=== PATIENT | female | born 1985 | race Caucasian/White ===

== ENCOUNTER 2021-08-22 18:20 | Emergency (ER) | payer OTHER ==
[~2021-08-22] VITALS: Ht 160 cm; Wt 99.3 kg
[~2021-08-22 18:20] MED LIST: BUPROPION HCL100 MG PO; DEPO-PROVER150 MG/ML IM; DILAUDID2 MG PO; LOSARTAN POTASS25 MG PO; PERCOCET 5-3251 EACH PO; PRILOSEC40 MG PO; WELLBUTRIN XL300 MG PO
--- OUTSIDE RECORDS SUMMARY | 2021-08-22 18:24 | XMS ---
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 EKika VISIT COUNT (12 MO.) 1 JAVIER Nicholson TOTAL 1 NOTE: Visits indicate total known visits. ED/UCC VISIT TRACKING (12 MO.) 08/22/2021 18:21 JAVIER [facility] OR TYPE: Emergency COMPLAINT: - RT HAND NUMBESS INPATIENT VISIT TRACKING (12 MO.) No inpatient visits to display in this time frame [id number]
== END 2021-08-22 21:38 | disposition home or self-care (01) ==
LOC: ED 18:20
DX: R20.2 Paresthesia of skin (principal); I10 Essential (primary) hypertension; Z88.1 Allergy status to other antibiotic agents; Z88.0 Allergy status to penicillin; Z79.899 Other long term (current) drug therapy
CPT/HCPCS: 36415; 70450; 80053; 85025; 99284-25

== ENCOUNTER 2021-08-24 23:21 | Emergency (ER) | payer OTHER ==
[~2021-08-24] VITALS: Ht 160 cm; Wt 99.3 kg
--- OUTSIDE RECORDS SUMMARY | 2021-08-24 23:24 | XMS ---
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 CARE PROVIDERS JENNIFER ZARCO Physician Geoduck Diver Current PHONE: [phone] Wei has no Care Guidelines for this patient. EKika VISIT COUNT (12 MO.) 2 [facility] TOTAL 2 NOTE: Visits indicate total known visits. ED/UCC VISIT TRACKING (12 MO.) 08/24/2021 23:21 JAVIER [facility] OR TYPE: Emergency COMPLAINT: - HIGH BLOOD PRESSURE 08/22/2021 18:21 JAVIER [facility] OR TYPE: Emergency COMPLAINT: - RT HAND NUMBESS INPATIENT VISIT TRACKING (12 MO.) No inpatient visits to display in this time frame [id number]
[2021-08-24] MEDS ORDERED: PANTOPRAZOLE SO20 MG PO (23:36)
[2021-08-24] MEDS ORDERED: ALPRAZOLAM0.5 MG PO (23:36)
[2021-08-25] MEDS ORDERED: ZESTRIL10 MG PO (00:50)
== END 2021-08-25 01:14 | disposition home or self-care (01) ==
LOC: ED 23:21
DX: I10 Essential (primary) hypertension (principal); Z88.0 Allergy status to penicillin; Z88.1 Allergy status to other antibiotic agents; Z79.899 Other long term (current) drug therapy
CPT/HCPCS: 36415; 80048; 81001; 84703; 85025; 96374; 99283-25

== ENCOUNTER 2025-03-22 07:02 | Day surgery (SDC) | payer OTHER ==
[~2025-03-22] VITALS: Ht 160 cm; Wt 97.0 kg
[~2025-03-22 07:02] MED LIST changes: +ALPRAZOLAM0.5 MG PO; +DEXTROAMP-AMPHE30 MG PO; +IBLOOD GLUCOSE TEST STRIP 1 EA TEST VI PRN; +LACTATED RINGER'S 1,000 ML IV SCH; +LIDOCAINE HCL 1% 5 ML SDV INJ ONE; +NIFEDIPINE ER30 M1 PO; +PANTOPRAZOLE SO20 MG PO; +VITAMIN D3125 MC1 PO; +ZESTRIL10 MG PO
[2025-03-22 07:11] VITALS: BP 157/96
[2025-03-22 07:39] LABS: BASOPHILS 0.4 % (0.1-1.2); EOSINOPHILS 3.9 % (0.7-5.8); LYMPHOCYTES 33.1 % (19.3-51.7); MCH 29.7 PG (25.6-32.2); MCHC 32.6 g/dL (32.2-35.5); MCV 91.2 fL (79.4-94.8); MONOCYTES 6.0 % (4.7-12.5); NEUTROPHILS 56.4 % (34.0-71.1); RBC 4.78 M/uL (3.93-5.22)
[2025-03-22] MEDS ORDERED: LIDOCAINE HCL 2% 5 ML SDV ONE (07:44)
[2025-03-22] MEDS ORDERED: fentaNYL citrate 100 MCG/2 ML VIAL ONE (07:56)
--- NOTE | 2025-03-22 08:41 | NUR ---
03/22/25 0841 Mayra Etienne PT TO PACU SLEEPING WITH BIT BLOCK STILL IN PLACE. PT WOKE COUGHTING SPITTING UP SMALL AMOUNT OF BLOOD TINGED SPIT. PT DENIES PAIN AND NAUSEA.
[2025-03-22 08:56] VITALS: BP 146/99
--- NOTE | 2025-03-23 06:07 | EKG ---
[facility] [address] [facility] [place], [place] [address] Signed Normal sinus rhythm Normal ECG No previous ECGs available Confirmed by ANJUM HILL MD ([id number]) on 03/23/2025 6:07:33 AM Electronically Signed By: ANJUM HILL 03/23/25 0607 PATIENT NAME: ARMANDO MCDONALD Electrocardiogram DATE OF : 83 PHYSICIAN: ANJUM HILL REPORT #: [id number] REPORT IS CONFIDENTIAL AND NOT TO BE RELEASED WITHOUT AUTHORIZATION
--- NOTE | 2025-03-23 08:08 | OR ---
[facility] [address] [place], [place] [address] Signed DATE OF OPERATION: 03/22/2025 SURGEON: Ara Mcfarland DO PREOPERATIVE DIAGNOSES: 1. Constipation. 2. Gastroesophageal reflux symptoms. 3. Abdominal pain. POSTOPERATIVE DIAGNOSES: 1. Constipation. 2. Gastroesophageal reflux symptoms. 3. Abdominal pain. 4. LA grade B distal esophagitis. 5. Punctate gastritis and bile gastritis. 6. Diverticulosis. PROCEDURES PERFORMED: 1. Esophagogastroduodenoscopy with biopsy. 2. Colonoscopy. ANESTHESIA: IV sedation. ESTIMATED BLOOD LOSS: None. DRAINS: None. COMPLICATIONS: None. DESCRIPTION OF PROCEDURE: The patient was brought to the GI lab, placed in supine position. After induction of IV sedation through preanesthetized oropharynx and a bite block, the Olympus video endoscope was then introduced into the mouth directed to the length of esophagus into the distal esophagus. Some mild to moderate esophagitis consistent with LA grade B esophagitis noted. Biopsy of the distal esophagus was then taken, passed off the field for pathologic review. This was done with cold forceps. Scope was then placed through Electronically Signed By: ARA MCFARLAND DO 03/23/25 0808 PATIENT NAME: ARMANDO MCDONALD OPERATIVE REPORT DATE OF : 83 REPORT #: [id number] PHYSICIAN: ARA MCFARLAND DO PCP: JENNIFER ZARCO PA-C REPORT IS CONFIDENTIAL AND NOT TO BE RELEASED WITHOUT AUTHORIZATION [facility] [address] [facility] [place], [place] [address] Signed the stomach. A significant amount of bile present in the stomach itself with significant punctate bile gastritis noted. No ulcerations were appreciated. Scope was brought back into the pylorus, 1st and 2nd portion of duodenum were essentially unremarkable except for excessive bile. The scope was then brought back into the stomach, retroflexed on itself. No evidence of hiatal hernia was noted. The scope was then placed in neutral position. Stomach was decompressed and the scope was withdrawn. The patient was then placed in left lateral position, padded to the satisfaction of anesthesia and the Olympus video colonoscope was introduced into the rectum and then while under direct visualization and insufflation scope was advanced through the rectosigmoid, sigmoid colon, descending colon, transverse colon, ascending colon into the cecum. The colon was insufflated and inspection of mucosal surfaces then carried out. The ascending colon and cecum had no intrinsic or extrinsic masses were appreciated. Scope was then brought back into the transverse colon. No intrinsic or extrinsic masses were noted. Scope was then brought back via the splenic flexure into the descending colon. No intrinsic or extrinsic masses, no lesions or ulcerations were noted. The scope was brought back into the sigmoid colon. Some scattered diverticula were present, but no evidence of diverticulitis or bleeding was appreciated. The sigmoid colon was essentially unremarkable. The rectosigmoid had no intrinsic or extrinsic masses appreciated. The scope was withdrawn. The patient tolerated the procedure well and to recovery room in satisfactory condition. DO CARMEN Logan/SADAF /[id number] Copies: ~ Electronically Signed By: ARA MCFARLAND DO 03/23/25 0808 PATIENT NAME: ARMANDO MCDONALD OPERATIVE REPORT DATE OF : [birth year] REPORT #: [id number] PHYSICIAN: ARA MCFARLAND DO PCP: JENNIFER ZARCO PA-C REPORT IS CONFIDENTIAL AND NOT TO BE RELEASED WITHOUT AUTHORIZATION
--- NOTE | 2025-03-24 15:57 | PATH ---
[facility] [address] [place], [place] [address] Signed SPECIMEN(S): A GE JUNCTION BIOPSY SPECIMEN(S): B STOMACH BIOPSY SPECIMEN SOURCE: A. GE JUNCTION BIOPSY B. STOMACH BIOPSY CLINICAL HISTORY: GERD, abdominal pain, constipation, grade B gastritis, esophagitis FINAL PATHOLOGIC DIAGNOSIS: A. GE junction biopsy: - Esophageal and gastric mucosa with reactive features, and acute and chronic inflammation. - Negative for specialized intestinal metaplasia or dysplasia. B. Stomach biopsy: - Gastric mucosa with prominent superficial chronic gastritis. - A Helicobacter pylori immunostain is pending and will be reported in an addendum. [facility] MICROSCOPIC EXAMINATION: Histologic sections of all submitted blocks are examined by light microscopy. These findings, together with the gross examination, support the pathologic diagnosis. GROSS DESCRIPTION: A. The specimen, labeled and designated "Chris, GE junction biopsy," is received in formalin and consists of one roth soft tissue fragment, 0.4 cm. Entirely submitted in (A1). B. The specimen, labeled and designated "Chris, stomach biopsy," is received in formalin and consists of one roth soft tissue fragment, 0.4 cm. Entirely submitted in (B1). VB (under the direct supervision of a pathologist) The Gross Description was prepared using a voice recognition system. The report was reviewed for accuracy; however, sound-alike word errors, addition and/or deletions may occur. If there is any question about this report, please contact Client Services. ADDITIONAL NOTES: Immunohistochemical and/or in situ hybridization studies if performed in this PATIENT NAME: ARMANDO MCDONALD PATHOLOGY DATE OF : [birth year] REPORT #: [id number] PHYSICIAN: MAURIZIO HERNANDEZ PCP: JENNIFER ZARCO PA-C REPORT IS CONFIDENTIAL AND NOT TO BE RELEASED WITHOUT AUTHORIZATION [address] [address] Signed case included appropriate positive controls that reacted as expected. This test was developed and its performance characteristics determined by [facility]. It has not been cleared or approved by the U.S. Food and Drug Administration. The FDA has determined that such clearance or approval is not necessary. This test is used for clinical purposes. It should not be regarded as investigational or for research. [facility] is certified under the Clinical Laboratory Improvement Amendments of 1988 (CLIA) as qualified to perform high complexity clinical laboratory testing. PERFORMING LABORATORY: Technical component was performed by [facility], [address] [place] [id number] (CLIA# [id number]). Professional interpretation was performed by [facility] [place] [facility] - [address] [place] [address] (CLIA#: [id number]). Diagnostician: Luis Vuong MD Pathologist Electronically Signed 03/24/2025 Copies: ~ PATIENT NAME: ARMANDO MCDONALD PATHOLOGY DATE OF : [birth year] REPORT #: [id number] PHYSICIAN: MAURIZIO HERNANDEZ PCP: JENNIFER ZARCO PA-C REPORT IS CONFIDENTIAL AND NOT TO BE RELEASED WITHOUT AUTHORIZATION
== END 2025-03-22 09:05 | disposition home or self-care (01) ==
LOC: DS 07:02
PROVIDERS: Student in an Organized Health Care Education/Training Program; ATTEND Surgery
PROC: 0DB68ZX Excision of Stomach, Via Natural or Artificial Opening Endoscopic, Diagnostic (ICD-10-PCS; 2025-03-22)
PROC: 0DJD8ZZ Inspection of Lower Intestinal Tract, Via Natural or Artificial Opening Endoscopic (ICD-10-PCS; principal; 2025-03-22 09:00)
PROC: 0DB48ZX Excision of Esophagogastric Junction, Via Natural or Artificial Opening Endoscopic, Diagnostic (ICD-10-PCS; 2025-03-22 09:00)
DX: K29.70 Gastritis, unspecified, without bleeding (principal); K59.00 Constipation, unspecified; K21.00 Gastro-esophageal reflux disease with esophagitis, without bleeding; K57.30 Diverticulosis of large intestine without perforation or abscess without bleeding; K29.60 Other gastritis without bleeding; I10 Essential (primary) hypertension; Z79.899 Other long term (current) drug therapy
CPT/HCPCS: 00813; 36415; 84703; 85025; 93005; 93010; J2003; J2704; J3010; J7121